=== PATIENT | female | born 1990 | race Two or more races ===

== ENCOUNTER 2017-04-15 06:22 | Observation (INO) | payer SELFPAY ==
[~2017-04-15] VITALS: Ht 149.9 cm; Wt 53.5 kg
[~2017-04-15 06:22] MED LIST: IV RINGERS,LACTATED 1000ML 1,000 ML IV SCH
[2017-04-15 06:49] LABS: BILIRUBIN,URINE NEGATIVE (NEG); GLUCOSE,URINE NEGATIVE (NEG); NITRITE,URINE NEGATIVE (NEG); PH,URINE 6.5; PROTEIN,URINE 30 mg/dL (NEG-TRACE); UROBILINOGEN,URINE 0.2 mg/dL (0.2 mg/dL)
[2017-04-15 06:57] LABS: BARBITURATES NEG (NEG); BENZODIAZEPINES NEG (NEG); CANNABINOIDS NEG (NEG); COCAINE NEG (NEG); METHADONE NEG (NEG); OPIATES NEG (NEG); PHENCYCLIDINE NEG (NEG)
[2017-04-15 07:07] LABS: BACTERIA,URINE MANY /HPF (0-FEW); SQUAMOUS EPITHELIAL CELL,UR MOD /LPF; WBC,URINE >40 /HPF (0-4)
== END 2017-04-15 08:18 | disposition home or self-care (01) ==
LOC: 3 SO LND 06:22
PROVIDERS: ADMIT Obstetrics & Gynecology; ATTEND Obstetrics & Gynecology
DX: O26.892 Other specified pregnancy related conditions, second trimester (principal); R10.30 Lower abdominal pain, unspecified; R30.0 Dysuria; R35.0 Frequency of micturition; Z3A.26 26 weeks gestation of pregnancy
CPT/HCPCS: 80307; 81001; 87086; G0378; G0379; 87186; G0479

== ENCOUNTER 2017-07-18 14:51 | Observation (INO) | payer SELFPAY | END 2017-07-18 17:10 | disposition home or self-care (01) | LOC: 3 SO LND 14:51 | DX: O26.893 Other specified pregnancy related conditions, third trimester (principal); R10.30 Lower abdominal pain, unspecified; M54.9 Dorsalgia, unspecified; Z3A.38 38 weeks gestation of pregnancy | CPT/HCPCS: G0378; G0379 ==